=== PATIENT | female | born 1975 | race Two or more races ===

== ENCOUNTER 2017-05-01 15:24 | Inpatient (IN) | payer MEDICAID ==
[~2017-05-01] VITALS: Ht 154.9 cm; Wt 77.5 kg
[~2017-05-01 15:24] MED LIST: ACET325T33 PO; CIPR500T4 PO; FOLI-49 PO; PRENAT PO
[2017-05-01 15:50] VITALS: Ht 154.9 cm; Wt 77.5 kg
[2017-05-01 15:51] VITALS: BP 119/72; PULSE 76
[2017-05-01] MEDS ORDERED: LACTATED RINGER'S 1,000 ML IV PRN (15:59)
[2017-05-01] MEDS ORDERED: IBUPROFEN 600 MG TAB PO PRN (16:00)
[2017-05-01] MEDS ORDERED: METHYLERGONOVINE 0.2 MG INJ IM PRN (16:00)
[2017-05-01] MEDS ORDERED: MISOPROSTOL 200 MCG TAB PR PRN (16:00)
[2017-05-01] MEDS ORDERED: CARBOPROST 250 MCG INJ IM PRN (16:00)
[2017-05-01] MEDS ORDERED: AMPICILLIN 2 GM/NS (PMX) 100 ML IV ONE (16:00)
[2017-05-01] MEDS ORDERED: BUTORPHANOL 2 MG INJ IV PRN (16:00)
[2017-05-01] MEDS ORDERED: OXYTOCIN 30 UNITS/LR 500 ML IV PRN (16:00)
[2017-05-01] MEDS ORDERED: OXYTOCIN 30 UNITS/LR 500 ML IV SCH ×2 (16:00)
[2017-05-01] MEDS ORDERED: LIDOCAINE 1% (MPF) 30 ML INJ INJ PRN (16:00)
[2017-05-01 16:15] LABS: ADD SCAN DIFF NO
[2017-05-01 16:20] LABS: BASOPHILS % 0.2 % (0.0-2.0); EOSINOPHILS # 0.2 10^3/ul (0.0-0.5); EOSINOPHILS % 1.1 % (0.0-7.0); HEMATOCRIT 37.1 % (37.0-47.0); HEMOGLOBIN 12.7 g/dl (12.0-16.0); LYMPHOCYTES # 1.9 10^3/ul (0.8-2.9); LYMPHOCYTES % 13.7 % (15.0-51.0); MEAN CORPUSCULAR HEMOGLOBIN 29.8 pg (29.0-33.0); MEAN CORPUSCULAR HGB CONC 34.2 g/dl (32.0-37.0); MEAN CORPUSCULAR VOLUME 87.1 fl (82.0-101.0); MONOCYTE # 0.8 10^3/ul (0.3-0.9); MONOCYTES % 5.6 % (0.0-11.0); NEUTROPHIL # 10.6 10^3/ul (1.6-7.5); PLATELET COUNT 262 10^3/UL (140-415); RED BLOOD COUNT 4.26 10^6/ul (4.20-5.40); RED CELL DISTRIBUTION WIDTH 14.9 % (11.5-14.5); WHITE BLOOD COUNT 13.6 10^3/ul (4.8-10.8)
[2017-05-01 16:34] LABS: INR 0.95; PROTIME 12.7 Sec (12.2-14.2)
[2017-05-01 16:35] LABS: PARTIAL THROMBOPLASTIN TIME 26.4 Sec (25.0-35.0)
[2017-05-01] MEDS: LACTATED RINGER'S 1,000 ML IV SCH ×2 (17:25→18:55)
[2017-05-01] MEDS ORDERED: AMPICILLIN 1 GM/NS (PMX) 50 ML IV SCH (20:00)
[2017-05-01] MEDS ORDERED: DEXTROSE 5%-LR 1,000 ML IV SCH (20:30)
[2017-05-01] MEDS ORDERED: DINOPROSTONE 10 MG VAG SUPP VAG ONE (20:30)
--- NOTE | 2017-05-02 00:52 | HP ---
Date/Time of Note Date/Time of Note DATE: 05/02/17 TIME: 00:36 OB - History Hx of Present Free Text/Dictation 41 y.o A1(sab) at 38w1d who is A1DM was sent from NST room for nonreaassuring FHR for induction of labor initial VE barely 1cm suppose to have cervidil induction but prior to insertion of cervidil cervix already 4cm patient was left on expectant management Chief Complaint: for induction labor for nonreassuring fHR Estimated Due Date: May 15, 2017 : 4 Para: 2 Spontaneous : 1 Therapeutic : 0 Care: Good Care Ultrasounds: Normal mid trimester US Obstetrical Complications: Gestational Diabetes Medical Complications: None Past Family/Social History * Past Medical, Surgical, Family and Obstetric Histories reviewed from chart. Blood Type: O+ Rubella: immune RPR/VDRL: Negative GBS Status: Negative HBsAG: Negative OB Admission Exam Vital Signs Vital Signs Vital Signs Date Time Temp Pulse Resp B/P Pulse Ox O2 Delivery O2 Flow Rate FiO2 05/01/17 15:51 98.0 76 119/72 Room Air Physical Exam HEENT: WNL Heart: Rhythm Normal Lungs: Clear, Equal Abdomen: WNL Extremities: Normal Reflexes: Normal Cervical Dilatation: 1cm Effacement: Other Station: Other Membranes: Intact Amniotic Fluid: Unevaluable Heart Rate: 140's Accelerations: Accelerations Present Varibility: Moderate Contractions on Admission: >10 Minutes Apart Intensity: Mild Last 72 hourBlood Glucose Bedside Glucose - 72 Hours Test 05/01/17 22:40 Bedside Glucose 70mg/dL (70-220) Last 72 hours Lab Results CBC & BMP 05/01/17 16:05 OB Assessment/Plan Reason for admission: induction of labor Other Assessment: cat II tracingnat 38w1d A1DM Plan: Induction Induction Method: per Misoprostol Protocol SIGIFREDO HEWITT MD May 02, 2017 00:46
[2017-05-02] MEDS: OXYTOCIN 30 UNITS/LR 500 ML IV SCH ×2 (01:59→06:02)
--- NOTE | 2017-05-02 02:03 | LDN ---
Date/Time of Note Date/Time of Note DATE: 05/02/17 TIME: 02:00 Delivery Summary normal vaginal delivery Weeks of Gestation 38w1d Placenta Delivered: Spontaneously Meconium: Light Episiotomy: No Perineal laceration: 1 Laceration repair: 000ch gut Anesthesia type: None Estimated blood loss: 350 Sponge & Needle done & correct: Yes All needle counts correct: Yes Problems: Infant Delivery Information Sex Infant Sex: female Apgars 1 Minute: 9 5 Minute: 9 10 Minute: 9 Suctioning Nose & mouth suctioned at ivett: Yes Delee suction performed: No Umbilical Cord Umbilical cord with: 3 Vessels Cord presentations: nuchal cord Nuchal cord present X: 1 Cord Blood was obtained: Yes Mother & Baby Disposition Disposition Mom & Baby to Maternity; Good: Yes Mom transferred to: Other () Baby to NICU: No SIGIFREDO HEWITT MD May 02, 2017 02:03
--- NOTE | 2017-05-02 02:15 | DELSUM ---
Delivery Summary A-C Datetime Report Generated by CPN: 05/02/2017 02:14 DELIVERY PERSONNEL Rf Test Engineer: Fordis, Katy MATERNAL INFORMATION Delivery Anesthesia: None Medications in Delivery: [id number] Estimated Blood Loss (ml): 350 Placenta Cultured: No Maternal Complications: Other Other Maternal Complications: AMA; GDM-DIET CONTROLLED; FIBROIDS LABOR SUMMARY EDC: 05/15/2017 00:00 No. Babies in Womb: 1 Attempted: No Labor Anesthesia: None LABOR INFORMATION Reason for Induction: Not Applicable Onset of Labor: 05/01/2017 20:00 Complete Dilatation: 05/02/2017 01:29 Oxytocin: N/A Group B Beta Strep: Negative Antibiotics # of Doses: x1 Ampicillin Antibiotics Time of Last Dose: 05/01/2017 16:30 Steroids Given: None Reason Steroids Not Administered: Not Applicable Other Reason Not Administered: Term MEMBRANES Membranes Rupture Method: Spontaneous Rupture of Membranes: 05/02/2017 01:16 Length of Rupture (hr): 0.40 Amniotic Fluid Color: Clear Amniotic Fluid Amount: Moderate Amniotic Fluid Odor: Normal STAGES OF LABOR Stage 1 hr: 5 Stage 1 min: 29 Stage 2 hr: 0 Stage 2 min: 11 Stage 3 hr: 0 Stage 3 min: 3 Total Time in Labor hr: 5 Total Time in Labor min: 43 VAGINAL DELIVERY Episiotomy: None Laceration Extension: First Degree Laceration Type: Perineal Laceration Repair: Yes Initial Vag Sponge Count: 20 Final Vag Sponge Count: 20 Initial Vag Sharps Count: 1 Final Vag Sharps Count: 2 Sponge Count Correct: Yes; Vaginal Sweep Performed Sharps Count Correct: Yes BABY A INFORMATION Infant Delivery Date/Time: 05/02/2017 01:40 Method of Delivery: Vaginal Method of Delivery: Vaginal Born in Route : No : N/A Forceps: N/A Vacuum Extraction: N/A Shoulder Dystocia : No SHOULDER DYSTOCIA BABY A Delivery Date/Time: 05/02/2017 01:40 PRESENTATION/POSITION BABY A Presentation: Cephalic Presentation: Cephalic Presentation: Cephalic Cephalic Presentation: Vertex Vertex Position: Left Occipital Anterior Breech Presentation: N/A PLACENTA INFORMATION BABY A Placenta Delivery Time : 05/02/2017 01:43 Placenta Method of Delivery: Spontaneous Placenta Status: Delivered SCORES BABY A Heart Rate 1 min: >100 bpm Resp Effort 1 min: Good Cry Reflex Irritability 1 min: Cough/Sneeze/Pulls Away Muscle Tone 1 min: Active Motion Color 1 min: Body Lynd, Extremit Blue Resuscitation Effort 1 min: Tactile Stimulation SCORE 1 MIN: 9 Heart Rate 5 min: >100 bpm Resp Effort 5 min: Good Cry Reflex Irritability 5 min: Cough/Sneeze/Pulls Away Muscle Tone 5 min: Active Motion Color 5 min: Body Lynd, Extremit Blue Resuscitation Effort 5 min: Tactile Stimulation SCORE 5 MIN: 9 Resuscitation Effort 10 min: N/A INFANT INFORMATION BABY A Gestational Age at Delivery: 38.1 Gestational Status: Early Term- 37- 38.6 Weeks Outcome : Liveborn Condition : Stable Sex: Female Infant Sex: Female IDENTIFICATION/MEDS BABY A ID Band Number: [id number] ID Band Location: Right Leg; Left Arm Sensor Applied: Yes Sensor Number: [id number] Sensor Location : Cord Clamp Vitamin K Given : Not Given Erythromycin Given: Not Given WEIGHT/LENGTH BABY A Infant Birthweight (gm): 3090 Weight (lb): 6 Weight (oz): 13 Length (in): 19.00 Length (cm): 48.26 CORD INFORMATION BABY A No. Cord Vessels: 3 Nuchal Cord : Around Neck x1, Tight Cord Blood Taken: Yes Infant Suction: Mouth; Nose ASSESSMENT BABY A Infant Complications: Multiple Variable Decels Physical Findings at Delivery: Within Normal Limits Respirations: Appears Normal Metal Polisher And Buffer Apprentice/ALS Called : No Care By: ALEXANDRO Amin Transferred To: Remains with Mother
[2017-05-02] MEDS ORDERED: LANOLIN 7 GM TUBE TOP PRN (03:30)
[2017-05-02] MEDS ORDERED: BENZOCAINE 20% 56 ML SPRAY TOP PRN (03:30)
[2017-05-02] MEDS ORDERED: ZOLPIDEM 5 MG TAB PO PRN (03:30)
[2017-05-02] MEDS ORDERED: WITCH HAZEL/GLYCERIN PAD PR PRN (03:30)
[2017-05-02] MEDS ORDERED: OXYCODONE/ASPIRIN (4.88/325) TAB PO PRN ×2 (03:30)
[2017-05-02] MEDS ORDERED: MISOPROSTOL 200 MCG TAB PR PRN (03:30)
[2017-05-02] MEDS ORDERED: CARBOPROST 250 MCG INJ IM PRN (03:30)
[2017-05-02] MEDS ORDERED: METHYLERGONOVINE 0.2 MG INJ IM PRN (03:30)
[2017-05-02] MEDS ORDERED: OXYTOCIN 30 UNITS/LR 500 ML IV PRN (03:30)
[2017-05-02 04:00] VITALS: BP_SYST 112; BP_SYST 98; BP_DIAS 53; BP_DIAS 87; PULSE 64; PULSE 84; RESP 17; RESP 19
[2017-05-02] MEDS: IBUPROFEN 600 MG TAB PO SCH ×3 (05:40→17:59)
[2017-05-02 06:13] VITALS: BP 108/76; PULSE 81; RESP 18
[2017-05-02] MEDS: LACTATED RINGER'S 1,000 ML IV SCH (07:46)
[2017-05-02 08:30] VITALS: BP 100/66; PULSE 70; RESP 16
[2017-05-02] MEDS: SENNA/DOCUSATE NA (8.6MG/50MG) TAB PO SCH ×2 (09:45→20:30)
--- NOTE | 2017-05-02 10:15 | NSTRPT ---
NST Information Datetime Report Generated by CPN: 05/02/2017 10:15 Datetime: 05/01/2017 13:26 NST Information EGA: 38.0 Test Number: 9 Time on Monitor: 05/01/2017 13:53 Time off Monitor: 05/01/2017 14:38 NST Duration (Min): 45 Reason for NST: Diabetes Mellitus; Other Reason for NST Other: Myoma, A1DM Test and Monitor Explained: Monitor Explained; Test Explained; Verbalized Understanding Pulse: 74 Resp: 16 SBP: 110 DBP: 65 Test Evaluation NST Interventions: Reposition Patient Patient States Movement: Present Contraction Frequency: occasional, mild FHR Baseline : 130 Variability: Moderate 6-25bpm Accelerations: 15X15 Decelerations: Late; Variable FHR Category: Category II NST Results: Reactive Comments: pt to u/s. ALCIRA 10.5cm, cephalic FBS [address] Hameed, Dr. Hameed recommends delivery of patient today. Report given t o Dr. Carroll. New orders received. Pt to L_D to be induced for non-reassuring heart tones. Exp lained to patient plan of care. Pt states understanding. No further questions asked. pt to L_D as or dered escorted by Nadia. (Annotations: Data stored by [facility] on behalf of user) Electronically Signed By E-Signature: with User ID: [id number], Addendum/Amendment: Patient with suspicious deceleration, other variable decelerations Datetime: 04/28/2017 13:24 NST Information EGA: 37.4 NST Duration (Min): 23 Datetime: 04/24/2017 10:56 NST Information EGA: 37.0 NST Duration (Min): 34 Datetime: 04/22/2017 13:18 NST Information EGA: 36.5 NST Duration (Min): 28 Datetime: 04/17/2017 13:16 NST Information EGA: 36.0 NST Duration (Min): 34 Datetime: 04/14/2017 13:27 NST Information EGA: 35.4 NST Duration (Min): 34 Datetime: 04/10/2017 13:06 NST Information EGA: 35.0 NST Duration (Min): 24 Datetime: 04/07/2017 13:22 NST Information EGA: 34.4 NST Duration (Min): 29 Datetime: 04/03/2017 14:06 NST Information EGA: 34.0 Datetime: 04/03/2017 14:00 NST Duration (Min): 27
[2017-05-02 16:00] VITALS: BP 98/56; PULSE 77; RESP 16
[2017-05-02 20:05] VITALS: BP 108/65; PULSE 70; RESP 18
[2017-05-03] MEDS: IBUPROFEN 600 MG TAB PO SCH ×5 (00:05→23:29)
[2017-05-03 04:00] VITALS: BP 95/66; PULSE 67; RESP 17
[2017-05-03 08:00] VITALS: BP 98/64; PULSE 63; RESP 16
[2017-05-03 08:13] LABS: ADD SCAN DIFF NO
[2017-05-03 08:18] LABS: BASOPHIL # 0.1 10^3/ul (0.0-0.1); BASOPHILS % 0.4 % (0.0-2.0); EOSINOPHILS # 0.3 10^3/ul (0.0-0.5); EOSINOPHILS % 1.9 % (0.0-7.0); HEMATOCRIT 32.1 % (37.0-47.0); HEMOGLOBIN 10.5 g/dl (12.0-16.0); LYMPHOCYTES # 2.5 10^3/ul (0.8-2.9); LYMPHOCYTES % 19.3 % (15.0-51.0); MEAN CORPUSCULAR HEMOGLOBIN 29.3 pg (29.0-33.0); MEAN CORPUSCULAR HGB CONC 32.7 g/dl (32.0-37.0); MEAN CORPUSCULAR VOLUME 89.7 fl (82.0-101.0); MEAN PLATELET VOLUME 11.3 fl (7.4-10.4); MONOCYTE # 0.8 10^3/ul (0.3-0.9); MONOCYTES % 6.4 % (0.0-11.0); NEUTROPHIL # 9.2 10^3/ul (1.6-7.5); PLATELET COUNT 255 10^3/UL (140-415); RED BLOOD COUNT 3.58 10^6/ul (4.20-5.40); RED CELL DISTRIBUTION WIDTH 15.1 % (11.5-14.5); WHITE BLOOD COUNT 12.9 10^3/ul (4.8-10.8)
[2017-05-03] MEDS: SENNA/DOCUSATE NA (8.6MG/50MG) TAB PO SCH ×2 (09:36→21:45)
--- NOTE | 2017-05-03 15:44 | PN ---
Date/Time of Note Date/Time of Note DATE: 05/03/17 TIME: 15:42 OB Subjective Subjective Subjective day 1, status post OB Objective Objective Objective Patient has no complaints Ambulating and tolerating regular diet well HEENT: WNL Heart: Rhythm Normal Lungs: Clear, Equal Abdomen: WNL Extremities: Normal Reflexes: Normal OB Assessment/Plan Other Assessment: day 1, status post Patient stable and afebrile Other plan: Continue with present management Repeat CBC in a.thom. CHANDLER COKER MD May 03, 2017 15:44
[2017-05-03 16:00] VITALS: BP 105/74; PULSE 63; RESP 18
[2017-05-03 20:00] VITALS: BP 113/62; PULSE 77; RESP 20
[2017-05-04 02:51] VITALS: BP 110/64; PULSE 72; RESP 20
[2017-05-04] MEDS: IBUPROFEN 600 MG TAB PO SCH ×2 (05:26→11:30)
[2017-05-04 07:13] LABS: ADD SCAN DIFF NO
[2017-05-04 07:17] LABS: BASOPHILS % 0.4 % (0.0-2.0); EOSINOPHILS # 0.3 10^3/ul (0.0-0.5); EOSINOPHILS % 2.6 % (0.0-7.0); HEMATOCRIT 32.8 % (37.0-47.0); HEMOGLOBIN 10.5 g/dl (12.0-16.0); LYMPHOCYTES # 2.2 10^3/ul (0.8-2.9); LYMPHOCYTES % 19.7 % (15.0-51.0); MEAN CORPUSCULAR HEMOGLOBIN 28.9 pg (29.0-33.0); MEAN CORPUSCULAR VOLUME 90.4 fl (82.0-101.0); MEAN PLATELET VOLUME 10.9 fl (7.4-10.4); MONOCYTE # 0.8 10^3/ul (0.3-0.9); MONOCYTES % 6.6 % (0.0-11.0); NEUTROPHIL # 7.9 10^3/ul (1.6-7.5); NEUTROPHILS % 69.8 % (39.0-77.0); PLATELET COUNT 262 10^3/UL (140-415); RED BLOOD COUNT 3.63 10^6/ul (4.20-5.40); RED CELL DISTRIBUTION WIDTH 15.2 % (11.5-14.5); WHITE BLOOD COUNT 11.4 10^3/ul (4.8-10.8)
[2017-05-04 08:00] VITALS: BP 105/64; PULSE 66; RESP 18
[2017-05-04] MEDS ORDERED: DIPHTH/TET/ACEL PERTUSS (ADULT) 0.5 ML VIAL IM* ONE (09:00)
[2017-05-04] MEDS: SENNA/DOCUSATE NA (8.6MG/50MG) TAB PO SCH (09:59)
--- NOTE | 2017-05-04 12:19 | DS ---
Date/Time of Note Date/Time of Note DATE: 05/04/17 TIME: 12:19 Obstetrical Discharge Record Final Diagnosis Final Diagnosis: Term delivered Vaginal Delivery Obstetrical Delivery: Spontaneous Condition on Discharge Physical Assessment Voiding: Yes Bowel Movement: Yes Breast: Soft, non-tender Fundus: Firm Patient Condition: Stable CALLIE COWART MD May 04, 2017 12:19
== END 2017-05-04 13:25 | disposition home or self-care (01) | DRG 775 ==
LOC: L-D 15:24 → PP1 05-02 03:54
PROVIDERS: ADMIT Obstetrics & Gynecology; ATTEND Obstetrics & Gynecology
PROC: 10E0XZZ Delivery of Products of Conception, External Approach (ICD-10-PCS; principal; 2017-05-02)
PROC: 0HQ9XZZ Repair Perineum Skin, External Approach (ICD-10-PCS; 2017-05-02)
DX: O69.81X0 Labor and delivery complicated by cord around neck, without compression, not applicable or unspecified (principal); O24.429 Gestational diabetes mellitus in childbirth, unspecified control; O70.0 First degree perineal laceration during delivery; Z3A.38 38 weeks gestation of pregnancy; Z37.0 Single live birth
CPT/HCPCS: 82962; 85025; 85610; 85730; 86592; 86900; 86901; 90715; J0290; J2210; J2590; J7120; J7121

== ENCOUNTER 2019-02-18 16:03 | Inpatient (IN) | payer MEDICAID ==
[~2019-02-18] VITALS: Ht 154.9 cm; Wt 78.7 kg
[~2019-02-18 16:03] MED LIST changes: -CIPR500T4 PO
[2019-02-18 16:23] VITALS: Ht 154.9 cm; Wt 78.7 kg
[2019-02-18 17:02] VITALS: BP 108/62; PULSE 88; RESP 19
[2019-02-18] MEDS ORDERED: ACETAMINOPHEN 500 MG TAB PO STA (17:39)
[2019-02-18] MEDS ORDERED: ACETAMINOPHEN 325 MG TAB PO PRN (22:00)
[2019-02-18] MEDS: LACTATED RINGER'S 1,000 ML IV SCH (22:49)
--- NOTE | 2019-02-19 00:18 | HP ---
Date/Time of Note Date/Time of Note DATE: 02/19/19 TIME: 00:03 OB - History Hx of Present Free Text/Dictation 43 y.o at 36w3d with abdominal pain which is only by coughing, no pain without coughing.. which is located on left mid portion, no significant tenderness on palpation EFM no uterine activities CAT I tracing, denies any vaginal bleeding BPP 8/8 ALCIRA 10.3, but placenta is located on anterioe with retroplacental hypoechoic lesion 2.0cm,along the inferior tip of placenta extended observation with periconsult in the morning with continous monitoring Chief Complaint: abdominal pain Estimated Due Date: Mar 15, 2019 : 5 Para: 3 Spontaneous : 1 Therapeutic : 0 Care: Good Care Ultrasounds: Normal mid trimester US, Other Obstetrical Complications: None Medical Complications: None Past Family/Social History * Past Medical, Surgical, Family and Obstetric Histories reviewed from chart. Blood Type: O+ Rubella: immune RPR/VDRL: Negative GBS Status: Negative HBsAG: Negative OB Admission Exam Vital Signs Vital Signs Vital Signs Date Temp Pulse Resp B/P (MAP) Pulse Ox O2 O2 Flow FiO2 Time Delivery Rate 02/18/19 98.9 88 19 108/62 Room Air 17:02 (77) Physical Exam HEENT: WNL Heart: Rhythm Normal Lungs: Clear, Equal Abdomen: WNL Extremities: Normal Reflexes: Normal Cervical Dilatation: other Effacement: Other Station: Other Membranes: Intact Amniotic Fluid: Unevaluable Heart Rate: 140's Accelerations: Accelerations Present Decelerations: No Decelerations Varibility: Moderate Contractions on Admission: None Last 72 hours Lab Results CBC & BMP 02/18/19 22:40 OB Assessment/Plan Reason for admission: other Other Assessment: IUP 36w3d abdominal pain with retroplacental sonolucency Plan: Other (extended monitoring) Induction Method: other (perinatalogy consultation) SIGIFREDO HEWITT MD Feb 19, 2019 00:13
[2019-02-19] MEDS: LACTATED RINGER'S 1,000 ML IV SCH (07:01)
[2019-02-19] MEDS ORDERED: PRENATAL VITAMIN PO SCH (09:00)
[2019-02-19] MEDS ORDERED: GUAIFENESIN/DM 5ML CUP PO PRN (13:30)
--- NOTE | 2019-02-19 23:03 | DS ---
Date/Time of Note Date/Time of Note DATE: 02/19/19 TIME: 22:53 Obstetrical Discharge Record Final Diagnosis Final Diagnosis: not delivered Complications Augmentation: No Induction: No Rupture of Membranes: No Condition on Discharge Physical Assessment Last Vitals: patient was admitted with abdominal pain u/s revealed poss abruptio 2.0cm after observation overnight ,perinatalogist reviwed u/s ok to be discharged Voiding: Yes Bowel Movement: No Breast: Soft, non-tender Fundus: Other () Abdomen and Incision: soft no tenderness no uterine activities Episiotomy: n/a Calf Tenderness: No Patient Condition: Stable SIGIFREDO HEWITT MD Feb 19, 2019 23:03
== END 2019-02-19 17:00 | disposition home or self-care (01) | DRG 833 ==
LOC: OBT 16:03 → L-D 16:03 → OBT 23:10 → L-D 23:10
PROVIDERS: ADMIT Obstetrics & Gynecology; ATTEND Obstetrics & Gynecology
PROC: 4A1HXCZ Monitoring of Products of Conception, Cardiac Rate, External Approach (ICD-10-PCS; principal; 2019-02-18)
DX: O26.893 Other specified pregnancy related conditions, third trimester (principal); R10.9 Unspecified abdominal pain; Z3A.36 36 weeks gestation of pregnancy
CPT/HCPCS: 76815; 76818; 81003; 85025; 85610; 85730; 86900; 86901; G0463; J7120

== ENCOUNTER 2019-03-04 19:50 | Inpatient (IN) | payer MEDICAID ==
[~2019-03-04] VITALS: Ht 154.9 cm; Wt 78.3 kg
[~2019-03-04 19:50] MED LIST changes: -ACET325T33 PO
[2019-03-04 20:13] VITALS: BP 106/71; PULSE 92; RESP 16
[2019-03-04] MEDS ORDERED: LACTATED RINGER'S 1,000 ML IV PRN (20:41)
[2019-03-04] MEDS ORDERED: LACTATED RINGER'S 1,000 ML IV SCH (20:41)
[2019-03-04] MEDS ORDERED: OXYTOCIN 30 UNITS/LR 500 ML IV SCH ×3 (21:00)
[2019-03-04] MEDS ORDERED: MISOPROSTOL 200 MCG TAB PR PRN (21:00)
[2019-03-04] MEDS ORDERED: IBUPROFEN 600 MG TAB PO PRN (21:00)
[2019-03-04] MEDS ORDERED: METHYLERGONOVINE 0.2 MG INJ IM PRN (21:00)
[2019-03-04] MEDS ORDERED: MINERAL OIL LIGHT 10 ML VIAL TOP ONE (21:00)
[2019-03-04] MEDS ORDERED: OXYTOCIN 30 UNITS/LR 500 ML IV PRN (21:00)
[2019-03-04] MEDS ORDERED: BUTORPHANOL 1 MG INJ IV PRN (21:00)
[2019-03-04] MEDS ORDERED: BUTORPHANOL 2 MG INJ IV PRN (21:00)
[2019-03-04] MEDS ORDERED: LIDOCAINE 1% (MPF) 30 ML INJ INJ PRN (21:00)
[2019-03-04] MEDS ORDERED: CARBOPROST 250 MCG INJ IM PRN (21:00)
--- NOTE | 2019-03-04 21:08 | TRIAGE ---
OB Triage Datetime Report Generated by CPN: 03/04/2019 21:07 Datetime: 03/04/2019 20:40 Stage of : OB Triage Datetime: 03/04/2019 20:36 Stage of : OB Triage Labor Evaluation Frequency: 3-6 Monitor Mode: External Duration (sec)2399: 60 Quality: Moderate Pattern: Normal: <= 5 Contractions in 10 Minutes Resting Tone [place]: Relaxed Heart Rate FHR Baseline Rate: 140 Monitor Mode: External US FHR Baseline Changes: No Baseline Change Variability: Moderate 6-25 bpm Accelerations: 15X15 Decelerations: Variable Category: Category II Vaginal Exam Dilatation (cms): 4.0 Effacement (%): 70 Station: -2 Exam By: Michael Marx Status: Intact Vaginal Bleeding: Small Cervix, Consistency: Soft Cervix, Position: Midposition Presentation 'A': Cephalic Datetime: 03/04/2019 20:33 EGA: 38.4 Datetime: 03/04/2019 20:18 Time of Arrival: 03/04/2019 19:45 EGA: 40.0 Arrived By: Ambulatory Arrived From: Office Chief Complaint: 43yo c/o irreg ucs and spotting Movement: Present Contractions: Irregular Time Contractions Began: 03/04/2019 16:00 Contractions: q6-10 Rupture of Membranes: Denies Vaginal Bleeding: Scant Vaginal Discharge: Present Recent Sexual Intercouse: Denies Abdominal Trauma: Not Applicable Patient Complaints: Contractions Time Provider Notified: 03/04/2019 20:40 Provider Notified: Dr Ha Initial Plan: EFM, SVE Datetime: 03/04/2019 20:00 Stage of : OB Triage Maternal Assessment Level of Consciousness: Fully Conscious Headache: Denies Blurred Vision: No Respiratory Effort: Unlabored Nausea/Vomiting: Denies RUQ Epigastric Pain: Denies Facial Edema: None Labor Evaluation Frequency: placed Monitor Mode: External Resting Tone [place]: Relaxed Monitor Mode: External US Comments: FHT 140 Pain Assessment Pain Scale: 7 Pain Presence: Intermittent Pain Type: Contraction Pain Location: Abdomen Datetime: 03/04/2019 19:54 EGA: 38.0 Datetime: 02/19/2019 16:35 Labor Evaluation Frequency: 0 Monitor Mode: External Resting Tone [place]: Relaxed Heart Rate FHR Baseline Rate: 140 Monitor Mode: External US FHR Baseline Changes: No Baseline Change Variability: Moderate 6-25 bpm Accelerations: 15X15 Decelerations: None Category: Category I Pain Presence: None/Denies Datetime: 02/19/2019 15:28 Labor Evaluation Frequency: 0 Monitor Mode: External Resting Tone [place]: Relaxed Heart Rate FHR Baseline Rate: 140 Monitor Mode: External US FHR Baseline Changes: No Baseline Change Variability: Moderate 6-25 bpm Accelerations: 15X15 Decelerations: None Category: Category I Pain Presence: None/Denies Datetime: 02/19/2019 14:38 Maternal Assessment Level of Consciousness: Fully Conscious Respiratory Effort: Unlabored Breath Sounds, Left: Clear and Equal Breath Sounds, Right: Clear and Equal Labor Evaluation Frequency: 0 Monitor Mode: External Resting Tone [place]: Relaxed Heart Rate FHR Baseline Rate: 140 Monitor Mode: External US FHR Baseline Changes: No Baseline Change Variability: Moderate 6-25 bpm Accelerations: 15X15 Decelerations: None Category: Category I Pain Presence: None/Denies Datetime: 02/19/2019 13:42 Labor Evaluation Frequency: 0 Monitor Mode: External Resting Tone [place]: Relaxed Heart Rate FHR Baseline Rate: 140 Monitor Mode: External US FHR Baseline Changes: No Baseline Change Variability: Moderate 6-25 bpm Accelerations: 15X15 Decelerations: None Category: Category I Pain Presence: None/Denies Datetime: 02/19/2019 13:11 Labor Evaluation Frequency: 0 Monitor Mode: External Resting Tone [place]: Relaxed Heart Rate FHR Baseline Rate: 140 Monitor Mode: External US FHR Baseline Changes: No Baseline Change Variability: Moderate 6-25 bpm Accelerations: 15X15 Decelerations: None Category: Category I Datetime: 02/19/2019 11:46 Labor Evaluation Frequency: 0 Monitor Mode: External Resting Tone [place]: Relaxed Heart Rate FHR Baseline Rate: 140 Monitor Mode: External US FHR Baseline Changes: No Baseline Change Variability: Moderate 6-25 bpm Accelerations: 15X15 Decelerations: None Category: Category I Datetime: 02/19/2019 10:52 Labor Evaluation Frequency: 0 Monitor Mode: External Resting Tone [place]: Relaxed Heart Rate FHR Baseline Rate: 140 FHR Baseline Changes: No Baseline Change Variability: Moderate 6-25 bpm Accelerations: 15X15 Decelerations: None Category: Category I Pain Presence: None/Denies Datetime: 02/19/2019 09:36 Labor Evaluation Frequency: 0 Monitor Mode: External Resting Tone [place]: Relaxed Heart Rate FHR Baseline Rate: 140 FHR Baseline Changes: No Baseline Change Variability: Moderate 6-25 bpm Accelerations: 15X15 Decelerations: None Category: Category I Pain Presence: None/Denies Datetime: 02/19/2019 09:33 Labor Evaluation Frequency: 0 Monitor Mode: External Resting Tone [place]: Relaxed Heart Rate FHR Baseline Rate: 140 Monitor Mode: External US FHR Baseline Changes: No Baseline Change Variability: Moderate 6-25 bpm Accelerations: 15X15 Decelerations: None Category: Category I Pain Presence: None/Denies Datetime: 02/19/2019 08:30 Assessment Type: Ongoing Assessment Maternal Assessment Level of Consciousness: Fully Conscious DTR's/Clonus: DTRs 2+; No Clonus Headache: Denies Blurred Vision: No Respiratory Effort: Unlabored; Regular Rhythm; Equal Expansion Breath Sounds, Left: Clear and Equal Breath Sounds, Right: Clear and Equal Nausea/Vomiting: Denies RUQ Epigastric Pain: Denies Facial Edema: None Fall Risk Assessment History of Falling: (0) No Secondary Diagnosis: (0) No Ambulatory Aid: (0) Bedrest/Nurse Assist IV Therapy: (20) Yes Gait: (0) Normal/Bedrest/Immobile Mental Status: (0) Oriented to Own Ability Fall Score: 20 Fall Risk Score Definition: No Risk: No action required Datetime: 02/19/2019 08:29 Pain Presence: None/Denies Datetime: 02/19/2019 08:25 Labor Evaluation Frequency: 0 Monitor Mode: External Resting Tone [place]: Relaxed Heart Rate FHR Baseline Rate: 140 Monitor Mode: External US FHR Baseline Changes: No Baseline Change Variability: Moderate 6-25 bpm Accelerations: 15X15 Decelerations: None Category: Category I Datetime: 02/19/2019 07:00 Stage of : Antepartum Labor Evaluation Frequency: Irregular Monitor Mode: External Duration (sec)2399: 40-90 Quality: Mild Pattern: Normal: <= 5 Contractions in 10 Minutes Resting Tone [place]: Relaxed Heart Rate FHR Baseline Rate: 140 Monitor Mode: External US Variability: Moderate 6-25 bpm Accelerations: 15X15 Datetime: 02/19/2019 06:30 Stage of : Antepartum Temperature Route: Oral Datetime: 02/19/2019 06:00 Stage of : Antepartum Labor Evaluation Frequency: Irregular Monitor Mode: External Duration (sec)2399: 40-110 Quality: Mild Pattern: Normal: <= 5 Contractions in 10 Minutes Resting Tone [place]: Relaxed Heart Rate FHR Baseline Rate: 135 Monitor Mode: External US Variability: Moderate 6-25 bpm Accelerations: 15X15 Datetime: 02/19/2019 05:00 Stage of : Antepartum Labor Evaluation Frequency: x4 Monitor Mode: External Duration (sec)2399: 40-120 Quality: Mild Pattern: Normal: <= 5 Contractions in 10 Minutes Resting Tone [place]: Relaxed Heart Rate FHR Baseline Rate: 135 Monitor Mode: External US Variability: Moderate 6-25 bpm Accelerations: 15X15 Datetime: 02/19/2019 04:00 Stage of : Antepartum Labor Evaluation Frequency: x5 Monitor Mode: External Duration (sec)2399: 40-140 Quality: Mild Pattern: Normal: <= 5 Contractions in 10 Minutes Resting Tone [place]: Relaxed Heart Rate FHR Baseline Rate: 140 Monitor Mode: External US Variability: Moderate 6-25 bpm Accelerations: 15X15 Decelerations: None Category: Category I Datetime: 02/19/2019 03:00 Stage of : Antepartum Labor Evaluation Frequency: x1 Monitor Mode: External Duration (sec)2399: 100 Quality: Mild Pattern: Normal: <= 5 Contractions in 10 Minutes Resting Tone [place]: Relaxed Heart Rate FHR Baseline Rate: 135 Monitor Mode: External US Variability: Moderate 6-25 bpm Accelerations: 15X15 Datetime: 02/19/2019 02:00 Stage of : Antepartum Labor Evaluation Frequency: None Monitor Mode: External Resting Tone [place]: Relaxed Heart Rate FHR Baseline Rate: 140 Monitor Mode: External US Variability: Moderate 6-25 bpm Accelerations: 15X15 Decelerations: None Category: Category I Datetime: 02/19/2019 01:30 Assessment Type: Admission Assessment Vaginal Bleeding: None Maternal Assessment Level of Consciousness: Fully Conscious DTR's/Clonus: DTRs 2+; No Clonus Headache: Denies Blurred Vision: No Respiratory Effort: Unlabored; Regular Rhythm; Equal Expansion Breath Sounds, Left: Clear and Equal Breath Sounds, Right: Clear and Equal Nausea/Vomiting: Denies RUQ Epigastric Pain: Denies Lower Extremities Edema: None Degree: None Upper Extremities Edema: None Degree: None Facial Edema: None Fall Risk Assessment History of Falling: (0) No Secondary Diagnosis: (0) No Ambulatory Aid: (0) Bedrest/Nurse Assist IV Therapy: (0) No Gait: (0) Normal/Bedrest/Immobile Mental Status: (0) Oriented to Own Ability Fall Score: 0 Fall Risk Score Definition: No Risk: No action required Membrane Status: Intact Datetime: 02/19/2019 01:03 Stage of : Antepartum Labor Evaluation Frequency: X0 Monitor Mode: External Duration (sec)2399: X0 Pattern: Normal: <= 5 Contractions in 10 Minutes Resting Tone [place]: Relaxed Heart Rate FHR Baseline Rate: 155 Monitor Mode: External US Variability: Moderate 6-25 bpm Accelerations: 15X15 Decelerations: None Category: Category I Pain Assessment Pain Scale: 0 Pain Presence: None/Denies Pain Type: N/A Datetime: 02/19/2019 01:02 Pain Assessment Pain Scale: 0 Pain Presence: None/Denies Pain Type: N/A Datetime: 02/19/2019 00:20 Stage of : Antepartum Labor Evaluation Frequency: X0 Monitor Mode: External Duration (sec)2399: X0 Pattern: Normal: <= 5 Contractions in 10 Minutes Resting Tone [place]: Relaxed Heart Rate FHR Baseline Rate: 155 Monitor Mode: External US Variability: Moderate 6-25 bpm Accelerations: 15X15 Decelerations: Variable Category: Category II Datetime: 02/18/2019 23:15 Stage of : Antepartum Labor Evaluation Frequency: X0 Monitor Mode: External Duration (sec)2399: X0 Pattern: Normal: <= 5 Contractions in 10 Minutes Resting Tone [place]: Relaxed Contraction Comments: SOME IRRITABILITY NOTED Heart Rate FHR Baseline Rate: 155 Monitor Mode: External US Variability: Moderate 6-25 bpm Accelerations: 15X15 Decelerations: None Category: Category I Datetime: 02/18/2019 22:15 Stage of : Antepartum Labor Evaluation Frequency: X0 Monitor Mode: External Duration (sec)2399: X0 Pattern: Normal: <= 5 Contractions in 10 Minutes Resting Tone [place]: Relaxed Heart Rate FHR Baseline Rate: 135 Monitor Mode: External US Variability: Moderate 6-25 bpm Accelerations: 15X15 Decelerations: None Category: Category I Datetime: 02/18/2019 21:15 Stage of : OB Triage Labor Evaluation Frequency: X0 Monitor Mode: External Duration (sec)2399: X0 Pattern: Normal: <= 5 Contractions in 10 Minutes Resting Tone [place]: Relaxed Heart Rate FHR Baseline Rate: 135 Monitor Mode: External US Variability: Moderate 6-25 bpm Accelerations: 15X15 Decelerations: None Category: Category I Datetime: 02/18/2019 20:15 Stage of : OB Triage Labor Evaluation Frequency: 2-11 Monitor Mode: External Duration (sec)2399: 50-120 Pattern: Normal: <= 5 Contractions in 10 Minutes Resting Tone [place]: Relaxed Heart Rate FHR Baseline Rate: 135 Monitor Mode: External US Variability: Moderate 6-25 bpm Accelerations: 15X15 Decelerations: Variable Category: Category II Datetime: 02/18/2019 20:03 Monitor Mode: External US Comments: PT FOUND STANDING AT BEDSIDE. EFM REVERTS TO MATERNAL HEART RATE. PULSE OX APPLIED Datetime: 02/18/2019 18:47 Labor Evaluation Frequency: occas Monitor Mode: External Duration (sec)2399: 60-80 Quality: Mild Pattern: Normal: <= 5 Contractions in 10 Minutes Resting Tone [place]: Relaxed Heart Rate FHR Baseline Rate: 140 Monitor Mode: External [place] Variability: Moderate 6-25 bpm Accelerations: 15X15 Decelerations: None Category: Category I Datetime: 02/18/2019 18:00 Labor Evaluation Frequency: occas Monitor Mode: External Duration (sec)2399: 50-70 Quality: Mild Pattern: Normal: <= 5 Contractions in 10 Minutes Resting Tone [place]: Relaxed Heart Rate FHR Baseline Rate: 140 Monitor Mode: External US Variability: Moderate 6-25 bpm Accelerations: 15X15 Decelerations: None Category: Category I Datetime: 02/18/2019 17:03 Assessment Type: Triage Maternal Assessment Level of Consciousness: Fully Conscious DTR's/Clonus: DTRs 2+; No Clonus Headache: Denies Blurred Vision: No Respiratory Effort: Unlabored; Regular Rhythm; Equal Expansion Breath Sounds, Left: Clear and Equal Breath Sounds, Right: Clear and Equal Nausea/Vomiting: Denies RUQ Epigastric Pain: Denies Lower Extremities Edema: None Degree: None Upper Extremities Edema: None Degree: None Facial Edema: None Temperature Route: Axillary Fall Risk Assessment History of Falling: (0) No Secondary Diagnosis: (0) No Ambulatory Aid: (0) Bedrest/Nurse Assist IV Therapy: (0) No Gait: (0) Normal/Bedrest/Immobile Mental Status: (0) Oriented to Own Ability Fall Score: 0 Fall Risk Score Definition: No Risk: No action required Datetime: 02/18/2019 16:25 Time of Arrival: 02/18/2019 15:57 EGA: 36.5 Arrived By: Ambulatory Arrived From: Home Chief Complaint: ABDOMINAL PAIN Movement: Present Contractions: Denies/Absent Rupture of Membranes: Denies Vaginal Bleeding: None Vaginal Discharge: Denies Recent Sexual Intercouse: Denies Abdominal Trauma: Not Applicable Patient Complaints: Other Time Provider Notified: 02/18/2019 17:30 Provider Notified: DR. MARTEL Initial Plan: BEVERLY TALAVERA
--- NOTE | 2019-03-04 22:48 | HP ---
Date/Time of Note Date/Time of Note DATE: 03/04/19 TIME: 22:44 OB - History Hx of Present Free Text/Dictation 43 years old with single intrauterine at 38 weeks and 4 days with a GLORIA of 03/13/2019 complaining of uterine contractions. She states good movement. She denies nausea, vomiting, shortness of breath, chest pain, headache, visual changes, vaginal bleeding or LOF. Chief Complaint: Uterine contractions Estimated Due Date: Mar 13, 2019 : 5 Para: 3 Spontaneous : 1 Therapeutic : 0 Care: Good Care Ultrasounds: Normal mid trimester US Medical Complications: None Past Family/Social History * Past Medical, Surgical, Family and Obstetric Histories reviewed from chart. Blood Type: O+ Rubella: immune RPR/VDRL: Negative GBS Status: Negative HBsAG: Negative OB Admission Exam Vital Signs Vital Signs Vital Signs Date Temp Pulse Resp B/P (MAP) Pulse Ox O2 O2 Flow FiO2 Time Delivery Rate 03/04/19 97.9 92 16 106/71 Room Air 20:13 (83) Physical Exam HEENT: WNL Heart: Rhythm Normal Lungs: Clear Abdomen: WNL Extremities: Normal Membranes: Intact Heart Rate: 130's Accelerations: Accelerations Present Decelerations: No Decelerations Varibility: Moderate Contractions on Admission: < 5 Minutes Apart Intensity: Moderate Last 72 hours Lab Results CBC & BMP 03/04/19 20:55 OB Assessment/Plan Other plan: 43 years old with single intrauterine at 38 weeks and 4 days in active labor - FHR: No sign of metabolic acidosis- Category I - Continuous EFM, toco - CBC, blood type and screen - Analgesia options with R/B/A discussed in detail with patient - Epidural per patient request - Please see the orders - O+/Rubella: Immune - GBS: Negative Admission, procedures, expectations, risks and possible complications have been discussed in detail with the patient. Risk of vaginal delivery including but not limited to bleeding, infection, cervical laceration, placental retention, injury to fetus, blood transfusion, blood transfusion related infection, risk of an esthesia, adhesion, cervical laceration, episiotomy/laceration, possible delivery with risk of bleeding, infection, injury to other organs (bowel, bladder, ureter, vessels, nerves), injury to fetus, blood transfusion, blood transfusion related infection, risk of anesthesia, scar and hernia formation, needs for future , removal of uterus or any other indicated surgery discussed with the patient. She expressed understanding and repeats the risks. All of her questions were answered. She signed the informed consent. PHYSICIAN'S VERIFICATION OF INFORMED CONSENT The patient was counseled regarding the procedure, its indications, risks, potential complications and alternatives and any questions were answered. Consent was obtained. PLANNED PROCEDURE/TREATMENT: Vaginal delivery, episiotomy, repair of laceration possible delivery CADEN RENEE Mar 04, 2019 22:48
--- NOTE | 2019-03-04 23:47 | LDN ---
Date/Time of Note Date/Time of Note DATE: 03/04/19 TIME: 23:43 Delivery Summary 43 years old with single intrauterine at 38 weeks and 4 days delivered a viable female in occiput posterior over 1 cm first-degree posterior vaginal wall laceration at 23:19. Nose and mouth suction. There was a loose nuchal cord, delivered through it. Rest of body delivered. Cord clamped and cut after stopping pulsation. Baby given to the nurse. Placenta delivered intact and spontaneously with three-vessel cord. Patient tolerated procedure well Weight 6 pounds 14 ounces 9 at 1 minutes and 9 at 5 minutes EBL 200 mL Weeks of Gestation 38 weeks and 4 days Placenta Delivered: Spontaneously Meconium: none Episiotomy: No Estimated blood loss: 200 Sponge & Needle done & correct: Yes All needle counts correct: Yes Any foreign bodies felt in the: No Infant Delivery Information Sex Infant Sex: female Apgars 1 Minute: 9 5 Minute: 9 10 Minute: 10 Suctioning Nose & mouth suctioned at ivett: Yes Umbilical Cord Umbilical cord with: 3 Vessels Cord presentations: nuchal cord Nuchal cord present X: 1 Cord Blood was obtained: Yes Mother & Baby Disposition Disposition Mom & Baby to Maternity; Good: Yes CADEN RENEE Mar 04, 2019 23:47
[2019-03-05 00:40] VITALS: BP 115/68; PULSE 74; RESP 19
[2019-03-05] MEDS ORDERED: OXYTOCIN 30 UNITS/LR 500 ML IV SCH (01:02)
[2019-03-05] MEDS ORDERED: OXYTOCIN 30 UNITS/LR 500 ML IV PRN (01:30)
[2019-03-05] MEDS ORDERED: LANOLIN HPA 1 PKT TOP PRN (01:30)
[2019-03-05] MEDS ORDERED: MAGNESIUM HYDROXIDE 30ML CUP PO PRN (01:30)
[2019-03-05] MEDS ORDERED: MISOPROSTOL 200 MCG TAB PR PRN (01:30)
[2019-03-05] MEDS ORDERED: CARBOPROST 250 MCG INJ IM PRN (01:30)
[2019-03-05] MEDS ORDERED: METHYLERGONOVINE 0.2 MG INJ IM PRN (01:30)
[2019-03-05] MEDS ORDERED: METHYLERGONOVINE 0.2 MG TAB PO PRN (01:30)
[2019-03-05 01:50] VITALS: BP 110/63; PULSE 73; RESP 18
[2019-03-05 04:00] VITALS: BP 103/58; PULSE 80; RESP 18
[2019-03-05] MEDS: DEXTROSE 5%-LR 1,000 ML IV SCH ×3 (04:05→17:02)
[2019-03-05] MEDS: IBUPROFEN 800 MG TAB PO SCH ×3 (05:49→21:41)
[2019-03-05] MEDS ORDERED: WITCH HAZEL/GLYCERIN PAD PR PRN (06:30)
[2019-03-05] MEDS ORDERED: BENZOCAINE 20% 56 ML SPRAY TOP PRN (06:30)
[2019-03-05 08:00] VITALS: BP 101/67; PULSE 67; RESP 18
[2019-03-05] MEDS ORDERED: HYDROCODONE/APAP (5/325) TAB NGT PRN (08:00)
[2019-03-05] MEDS: SENNA/DOCUSATE NA (8.6MG/50MG) TAB PO SCH ×2 (08:32→21:41)
[2019-03-05] MEDS ORDERED: DIPHTH/TET/ACEL PERTUSS (ADULT) 0.5 ML VIAL IM* ONE (11:00)
[2019-03-05] MEDS: HYDROCODONE/APAP (5/325) TAB GTB SCH ×2 (13:35→21:42)
[2019-03-05 15:27] VITALS: BP 100/73; RESP 18
[2019-03-05 19:45] VITALS: BP 110/69; PULSE 84; RESP 18
--- NOTE | 2019-03-05 23:58 | QN ---
Documentation Comment 43 years old status post normal vaginal delivery at 38 weeks and 4 days. day 1. She has no complaint. She is afebrile, vital signs stable. She is ambulating and tolerating regular diet. Pain is controlled on current medication. Continue current management. CADEN RENEE Mar 05, 2019 23:58
[2019-03-06 03:35] VITALS: BP 98/65; PULSE 76; RESP 19
[2019-03-06] MEDS: HYDROCODONE/APAP (5/325) TAB GTB SCH ×2 (05:44→13:59)
[2019-03-06] MEDS: IBUPROFEN 800 MG TAB PO SCH ×3 (05:44→18:04)
[2019-03-06] MEDS: SENNA/DOCUSATE NA (8.6MG/50MG) TAB PO SCH (08:03)
[2019-03-06 09:15] VITALS: BP 101/67; PULSE 70; RESP 18
--- NOTE | 2019-03-06 15:12 | PD.PPDC ---
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
--- NOTE | 2019-03-06 15:27 | DS ---
Date/Time of Note Date/Time of Note DATE: 03/06/19 TIME: 15:18 Obstetrical Discharge Record Final Diagnosis Final Diagnosis: Term delivered Vaginal Delivery Obstetrical Delivery: Spontaneous, Laceration, Repaired Complications Augmentation: No Induction: No Rupture of Membranes: No Condition on Discharge Physical Assessment Last Vitals: vss afebrile Voiding: Yes Bowel Movement: Yes Breast: Soft, non-tender Fundus: Firm Abdomen and Incision: n/a Episiotomy: n/a Calf Tenderness: No Patient Condition: Stable SIGIFREDO HEWITT MD Mar 06, 2019 15:27
[2019-03-06 16:27] VITALS: BP 109/70; PULSE 74; RESP 20
[2019-03-07] MEDS ORDERED: MEASLES,MUMPS,RUBELLA VACCINE INJ SC* ONE (09:00)
[2019-03-07] MEDS ORDERED: DIPHTH/TET/ACEL PERTUSS (ADULT) 0.5 ML VIAL IM* ONE (09:00)
--- NOTE | 2019-03-07 18:38 | DELSUM ---
Delivery Summary A-C Datetime Report Generated by CPN: 03/07/2019 18:38 DELIVERY PERSONNEL Pediatric Associate: Cox, Carrie MATERNAL INFORMATION Delivery Anesthesia: Local Medications in Delivery: 30 UNITS PITOCIN Delivery QBL (ml): 200 Placenta Cultured: No Maternal Complications: None LABOR SUMMARY EDC: 03/13/2019 00:00 No. Babies in Womb: 1 Attempted: No Labor Anesthesia: None LABOR INFORMATION Reason for Induction: Not Applicable Onset of Labor: 03/04/2019 16:00 Complete Dilatation: 03/04/2019 23:09 Oxytocin: Augmentation Group B Beta Strep: Negative Steroids Given: None Reason Steroids Not Administered: Not Applicable MEMBRANES Membranes Rupture Method: Artificial Rupture of Membranes: 03/04/2019 21:59 Length of Rupture (hr): 1.33 Amniotic Fluid Color: Bloody Amniotic Fluid Amount: Small Amniotic Fluid Odor: None STAGES OF LABOR Stage 1 hr: 7 Stage 1 min: 9 Stage 2 hr: 0 Stage 2 min: 10 Stage 3 hr: 0 Stage 3 min: 6 Total Time in Labor hr: 7 Total Time in Labor min: 25 VAGINAL DELIVERY Episiotomy: None Laceration Extension: First Degree Laceration Type: Perineal Laceration Repair: Yes Initial Vag Sponge Count: 10 Final Vag Sponge Count: 10 Initial Vag Sharps Count: 1 Final Vag Sharps Count: 1+1 Sponge Count Correct: Yes; Vaginal Sweep Performed Sharps Count Correct: Yes CSECTION DELIVERY Primary Indication: N/A BABY A INFORMATION Infant Delivery Date/Time: 03/04/2019 23:19 Method of Delivery: Vaginal Born in Route : No : N/A Forceps: N/A Vacuum Extraction: N/A Shoulder Dystocia : N/A SHOULDER DYSTOCIA BABY A Delivery Date/Time: 03/04/2019 23:19 PRESENTATION/POSITION BABY A Presentation: Cephalic Cephalic Presentation: Vertex Breech Presentation: N/A PLACENTA INFORMATION BABY A Placenta Delivery Time : 03/04/2019 23:25 Placenta Method of Delivery: Expressed Placenta Status: Delivered SCORES BABY A Heart Rate 1 min: >100 bpm Resp Effort 1 min: Good Cry Reflex Irritability 1 min: Cough/Sneeze/Pulls Away Muscle Tone 1 min: Active Motion Color 1 min: Body [place], Extremit Blue Resuscitation Effort 1 min: Tactile Stimulation SCORE 1 MIN: 9 Heart Rate 5 min: >100 bpm Resp Effort 5 min: Good Cry Reflex Irritability 5 min: Cough/Sneeze/Pulls Away Muscle Tone 5 min: Active Motion Color 5 min: Body [place], Extremit Blue Resuscitation Effort 5 min: Tactile Stimulation SCORE 5 MIN: 9 INFANT INFORMATION BABY A Gestational Age at Delivery: 38.5 Gestational Status: Early Term- 37- 38.6 Weeks Outcome : Liveborn Condition : Stable Infant Sex: Female IDENTIFICATION/MEDS BABY A ID Band Number: [id number] ID Band Location: Right Leg; Left Arm Sensor Applied: Yes Sensor Number: [id number] Sensor Location : Cord Clamp Vitamin K Given : Not Given Erythromycin Given: Not Given WEIGHT/LENGTH BABY A Infant Birthweight (gm): 3125 Infant Weight (lb): 6 Infant Weight (oz): 14 Length (in): 19.25 Length (cm): 48.90 CORD INFORMATION BABY A No. Cord Vessels: 3 Nuchal Cord : Around Neck x1, Loose Infant Suction: Mouth; Nose ASSESSMENT BABY A Complications: None Physical Findings at Delivery: Within Normal Limits Respirations: Appears Normal Senior Consumer Insights Consultant/ALS Called : No Infant Care By: BRETT MC Transferred To: Remains with Mother
== END 2019-03-06 18:34 | disposition home or self-care (01) | DRG 807 ==
LOC: OBT 19:50 → L-D 19:51 → OBT 20:40 → L-D 20:40 → PP1 03-05 00:42
PROVIDERS: ADMIT Obstetrics & Gynecology; ATTEND Obstetrics & Gynecology
PROC: 10E0XZZ Delivery of Products of Conception, External Approach (ICD-10-PCS; principal; 2019-03-04)
PROC: 0HQ9XZZ Repair Perineum Skin, External Approach (ICD-10-PCS; 2019-03-04)
DX: O70.0 First degree perineal laceration during delivery (principal); Z37.0 Single live birth; O69.81X0 Labor and delivery complicated by cord around neck, without compression, not applicable or unspecified; Z3A.38 38 weeks gestation of pregnancy
CPT/HCPCS: 85025; 85610; 85730; 86592; 86850; 86900; 86901; G0463; J2590; J7120; J7121